=== PATIENT | male | born 1950 | race Caucasian/White ===

== ENCOUNTER 2017-05-26 11:24 | Outpatient (CLI) | payer MEDICARE ==
[~2017-05-26] VITALS: Ht 188 cm; Wt 136.4 kg
--- NOTE | ~2017-05-26 | HEMODYNAMI ---
PATIENT:SUSANA HURD MEDICAL RECORD: [id number] : 54 LOCATION:[facility] ADMISSION DATE: 05/26/17 Generatedon:05/26/201715:51 Patient name: SUSANA HURD Patient #: [id number] SSN: DO B: 1950 Date of study: 05/26/2017 Page: Of Hemodynamic Procedure Report Patient Data Patient Demographics Procedure consent was obtained First Name: SUSANA Gender: Male Last Name: VANNESSA : 1950 [facility] Initial: R Age: 67 year(s) Patient #: [id number] Race: Unknown Additional ID: [id number] Contact details Address: [address] [place] [address] State: [place] City: [facility] Zip code: [address] Past Medical History Allergies Allergen Reaction Date Comments Reported Sulfa drugs 05/26/2017 Admission Admission Data Admission Date: 05/26/2017 Admission Time: 11:24 Procedure Procedure Types Cath Procedure Diagnostic Procedure LHC LHC w/Coronaries Miscellaneous Procedures Moderate Sedation up to 30 minutes Procedure Description Procedure Date Procedure Date: 05/26/2017 Procedure Start Time: 15:29 Procedure End Time: 15:50 Procedure Staff Name Function Campbell Urbano MD Performing Physician eKlly Todd RT Monitor Mateo Gonzalez RT Scrub Dragan Patel RN Nurse Procedure Data Cath Procedure Fluoroscopy Diagnostic fluoroscopy Total fluoroscopy Time: 7 time: 7 min min Diagnostic fluoroscopy Total fluoroscopy dose: dose: 1014 mGy 1014 mGy Contrast Material Contrast Material Type Amount (ml) Isovue 300 118 Entry Location Entry Primary Successful Side Size Upsize Upsize Entry Closure Mckeon ccessful Closure Location (Fr) 1 (Fr) 2 (Fr) Remarks Device Remarks Radial Right 6 Fr Mechanical artery Short Compression Estimated blood loss: 5 ml Diagnostic catheters Device Type Used For End Catheter Placement DIAGNOSTIC Ahmet 110cm Left Coronary 5Fr catheter ([id number]) Angiography DIAGNOSTIC AR MOD 5Fr Right Coronary Catheter ([id number]) Angiography DIAGNOSTIC AR 2 MOD 5 Fr Right Coronary catheter ([id number]) Angiography DIAGNOSTIC Pigtail 5Fr Aortic Root catheter ([id number]) Angiography DIAGNOSTIC Pigtail 5Fr LV Angiography catheter ([id number]) Procedure Complications No complications Procedure Medications Medication Administration Route Dosage 0.9% NaCl I.V. 100 ml Oxygen NC 2 l/min Lidocaine 2% added to field 20 Heparin Flush Bag added to field 2 bags (1000units/500ml NS) Radial Cocktail added to field 1 syringe (Verapomil 2mg/Nitro 400mcg/Heparin 1500units) Versed I.V. 1 mg Fentanyl I.V. 50 mcg Versed I.V. 0.5 mg Fentanyl I.V. 25 mcg Radial Cocktail I.A. 1 syringe (Verapomil 2mg/Nitro 400mcg/Heparin 1500units) Versed I.V. 0.5 mg Fentanyl I.V. 25 mcg Hemodynamics Rest Heart Rate: 57 (bpm) Pressure Samples Time Site Value (mmHg) Purpose Heart Use Rate(bpm) 15:33 LV 130/-8,11 EDP 65 15:41 AO 125/74(97) Snapshot 59 15:44 LV 143/1,22 EDP 57 15:45 AO 143/77(103) Pullback 61 15:45 LV 147/4,29 Pullback 61 Gradients Valve Time Site 1 Site 2 Mean SEP/DFP Peak To Heart Use (mmHg) (sec/min) Peak Rate (mmHg) (bpm) Aortic 15:45 LV AO 11 18 4 61 147/4,29 143/77(103) Calculations Valve P-P Mean Valve Index Valve Source Name Gradient Area Flow (cm2) Aortic 4 11 4 11 Snapshots Pre Cath Intra NCS Post Cath Vital Signs Time Heart Resp SPO2 etCO2 NIBP (mmHg) Rhythm Pain Sedation Rate (ipm) (%) (mmHg) Status Level (bpm) 15:12:06 52 14 99 34.7 149/88(124) NSR 0 (11) 10(A) , No pain 15:16:59 53 13 86 0 137/84(105) NSR 0 (11) 10(A) , No pain 15:21:52 58 13 94 9 142/82(109) NSR 0 (11) 10(A) , No pain 15:26:47 56 15 95 20.4 137/85(110) NSR 0 (11) 10(A) , No pain 15:31:42 58 16 98 34.7 137/73(100) NSR 0 (11) 10(A) , No pain 15:36:39 61 13 94 25.7 133/68(98) NSR 0 (11) 10(A) , No pain 15:41:31 63 14 97 10.6 136/82(107) NSR 0 (11) 10(A) , No pain 15:46:27 58 16 98 22.7 141/83(111) NSR 0 (11) 10(A) , No pain Medications Time Medication Route Dose Verified Delivered Reason Notes Effectiveness by by 15:13:06 0.9% NaCl I.V. 100 ml Dragan Dragan Per Jorge Patel physician RN RN 15:13:27 Oxygen NC 2 l/min Dragan Dragan Per Jorge Patel physician RN RN 15:13:38 Lidocaine 2% added 20ml Dragan Dragan for local to vial Lorigan Jorge anesthetic field RN RN 15:13:55 Heparin Flush added 2 bags Dragan Dragan used for Bag to Jorge Patel procedure (1000units/500ml field RN RN NS) 15:14:18 Radial Cocktail added 1 Dragan Dragan for (Verapomil to syringe Jorge Patel vasodilation 2mg/Nitro field JIN RN 400mcg/Heparin 1500units) 15:20:00 Versed I.V. 1 mg Dragan Dragan for sedation Jorge Patel RN RN 15:20:14 Fentanyl I.V. 50 mcg Dragan Dragan for sedation Jorge Patel RN RN 15:30:01 Versed I.V. 0.5 mg Dragan Dragan for sedation Jorge Patel RN RN 15:30:11 Fentanyl I.V. 25 mcg Dragan Dragan for sedation Jorge Patel RN RN 15:31:39 Radial Cocktail I.A. 1 Dragan Campbell for (Verapomil syringe Jorge Urbano MD vasodilation 2mg/Nitro RN 400mcg/Heparin 1500units) 15:47:17 Versed I.V. 0.5 mg Dragan Campbell for sedation Jorge Urbano MD, RN 15:47:29 Fentanyl I.V. 25 mcg Dragan Campbell for sedation Jroge Urbano MD shale miner Log Time Note 14:50:03 Dragan Lorigan RN sent for patient. Start room use. 15:00:04 Time tracking: Regular hours 15:00:08 Plan of Care:Hemodynamics will remain stable., Cardiac rhythm will remain stable., Comfort level will be maintained., Respiratory function will remain adequate., Patient/ family verbilizes understanding of procedure., Procedure tolerated without complication., Recovers from procedure without complications.. 15:04:08 Patient received from Pre/Post Procedure Room to CCL 1 Alert and oriented. Tansferred to table in Supine position. 15:04:09 Warm blankets applied, and eloise hugger turned on for patient comfort. 15:04:10 Correct patient and procedure confirmed by team. 15:04:11 Signed procedure consent form obtained from patient. 15:04:11 ECG and BP/O2 sat monitors applied to patient. 15:10:59 Vital chart was started 15:13:06 0.9% NaCl 100 ml I.V. was administered by Dragan Patel RN; Per physician; 15:13:27 Oxygen 2 l/min NC was administered by Dragan Patel RN; Per physician; 15:13:38 Lidocaine 2% 20ml vial added to field was administered by Dragan Patel RN; for local anesthetic; 15:13:50 Rhythm: sinus bradycardia 15:13:51 Full Disclosure recording started 15:13:55 Heparin Flush Bag (1000units/500ml NS) 2 bags added to field was administered by Dragan Patel RN; used for procedure; 15:14:05 H&P Date Dictated: 05/22/2017 Within 30 days and on chart.. 15:14:06 Pre-procedure instructions explained to patient. 15:14:07 Pre-op teaching completed and patient verbalized understanding. 15:14:09 Family in patients room. 15:14:10 Patient NPO since Midnight. 15:14:18 Radial Cocktail (Verapomil 2mg/Nitro 400mcg/Heparin 1500units) 1 syringe added to field was administered by Dragan Patel RN; for vasodilation; 15:14:18 Patient allergic to Sulfa drugs 15:14:20 Is the patient allergic to Iodine/contrast media? No. 15:14:21 Is patient on blood thinner?No 15:14:23 Patient diabetic? No. 15:14:26 Previous problem with sedation/anesthesia? No ? 15:14:27 Snore? Yes 15:14:28 Sleep apnea? No 15:14:29 Deviated septum? No 15:14:30 Opens mouth fully? Yes 15:14:30 Sticks out tongue? Yes 15:14:32 Airway obstruction? No ? 15:14:34 Dentures? No ? 15:14:36 Pre procedure: right dorsailis pedis pulse 2+ Normal; easily identifiable; not easily obliterated 15:14:38 Modified Coy's test Ulnar < 7 seconds 15:14:40 Patient pain scale 0/10 ?. 15:14:45 IV patent on arrival in left hand with 0.9% NaCl at [facility]. 15:14:49 Lab results completed and on chart. 15:14:54 Right Radial & Right Groin area was prepped with chlora-prep and draped in sterile fashion 15:14:55 Alarms reviewed by R. N. 15:14:56 Sharps counted by scrub and verified by R.N. 15:15:00 Use device set Radial Dx 15:15:01 ACIST Syringe (40367) opened to sterile field. 15:15:01 Medline Cath Pack ([id number]) opened to sterile field. 15:15:02 Bag Decanter (2002S) opened to sterile field. 15:15:02 SHEATH 6FR Slender ([id number]) opened to sterile field. 15:15:03 DIAGNOSTIC WIRE .035 260cm J wire (078743) opened to sterile field. 15:15:04 ACIST Hand Control (94504) opened to sterile field. 15:15:05 ACIST Manifold (68770) opened to sterile field. 15:15:05 Tegaderm 4 x 4 (1626W) opened to sterile field. 15:15:06 MBrace Wrist Support ([id number]) opened to sterile field. 15:15:07 NEEDLE Cook 21G 4cm Radial (C30189) opened to sterile field. 15:19:15 Final Timeout: patient, procedure, and site verified with staff and physician. All members of the team are in agreement. 15:19:21 Right Radial site verified by team. 15:19:24 Physical assessment completed. ASA score P 2 - A patient with mild systemic disease as per Campbell Urbano MD. 15:19:27 Sedation plan: IV Moderate Sedation Medication:Versed, Fentanyl 15:20:00 Versed 1 mg I.V. was administered by Dragan Patel RN; for sedation; 15:20:14 Fentanyl 50 mcg I.V. was administered by Dragan Patel RN; for sedation; 15::49 Baseline sample Acquired. 15:25:06 Zero performed for pressure channel P1 15:29:22 Procedure started. 15:29:44 Local anesthetic to right radial artery with Lidocaine 2% by Campbell Urbano MD.INITIAL ACCESS ONLY 15:30:01 Versed 0.5 mg I.V. was administered by Dragan Patel RN; for sedation; 15:30:11 Fentanyl 25 mcg I.V. was administered by Drgaan Patel RN; for sedation; 15:31:05 A 6 Fr Short sheath was inserted into the Right Radial artery 15:31:39 Radial Cocktail (Verapomil 2mg/Nitro 400mcg/Heparin 1500units) 1 syringe I.A. was administered by Campbell Urbano MD; for vasodilation; 15:31:42 A DIAGNOSTIC Ahmet 110cm 5Fr catheter (275289) was advanced over the wire and used for Left Coronary Angiography. 15:36:18 Catheter removed. 15:36:29 A DIAGNOSTIC AR MOD 5Fr Catheter (273938Y) was advanced over the wire and used for Right Coronary Angiography. removed, unable to cannulate. 15:39:38 A DIAGNOSTIC AR 2 MOD 5 Fr catheter (552787R) was advanced over the wire and used for Right Coronary Angiography. removed, unable to cannulate. 15:41:12 A DIAGNOSTIC Pigtail 5Fr catheter (912677F) was advanced over the wire and used for Aortic Root Angiography. 15:45:03 A DIAGNOSTIC Pigtail 5Fr catheter (950997D) was advanced over the wire and used for LV Angiography. 15:45:07 LV gram done using LEIGH 15:45:11 Injector settings: Ml/sec: 10, Volume: 20, 15:45:12 LV hemodynamics recorded. 15:45:21 EF : 60 % 15:45:56 Catheter removed. 15:46:25 Sheath removed intact; hemostasis achieved with Mechanical Compression to the Right Radial artery. 15:46:29 Procedure ended.(Physican Out) 15:46:53 Fluoroscopy time 07.00 minutes. 15:47:08 Flurop Dose total: 1014 15:47:08 Fluoroscopy dose: 1014 mGy 15:47:13 Contrast amount:Isovue 300 118ml. 15:47:17 Versed 0.5 mg I.V. was administered by Campbell Urbano MD; for sedation; 15:47:29 Fentanyl 25 mcg I.V. was administered by Campbell Urbano MD; for sedation; 15:47:31 Sharps counted by scrub and verified by R.N. 15:47:34 TR band inflated with 12cc of air. 15:47:35 Insertion/operative site no bleeding no hematoma. 15:47:47 Post right radial artery:stable, soft, clean and dry 15:47:55 Post Procedure Pulses reassessed and unchanged 15:47:59 Post-procedure physical assessment completed. ASA score P 2 - A patient with mild systemic disease as per Campbell Urbano MD. 15:48:03 Post procedure rhythm: unchanged. 15:48:05 Estimated blood loss: 5 ml 15:48:07 Post procedure instruction explained to patient.Patient verbalizes understanding. 15:48:07 Patient needs reinforcement of post procedure teaching. 15:48:12 Procedure type changed to Cath procedure, Diagnostic procedure, LHC, LHC w/Coronaries, Miscellaneous Procedures, Moderate Sedation up to 30 minutes 15:48:18 Procedure Complication : No complications 15:48:19 TR BAND Large ([id number]) opened to sterile field. 15:48:24 See physician's report for complete and final results. 15:48:52 Procedure and supply charges have been captured, reviewed, submitted and are correct. 15:50:22 Vital chart was stopped 15:50:24 Report given to Pre/Post Procedure Room. 15:50:27 Patient transfered to Pre/Post Procedure Room with Stretcher. 15:50:39 Procedure ended. 15:50:39 Full Disclosure recording stopped 15:50:42 End room use (Document Last) Device Usage Item Name Manufacture Quantity Catalog Hospital Part Current Minima l Lot# / Number Charge Number Stock Stock Serial# Code ACIST Acist 1 51264 486074 988260 849841 20 Syringe Reapplix (56609) Systems Inc Medline Cath Cardinal 1 [id number] 977223 60253 315322 5 Pack Health ([id number]) Bag Decanter Microtek 1 770155 05491 267914 5 (2002S) Medical Inc. SHEATH 6FR Terumo 1 [id number] 993469 440566 037144 40 Slender ([id number]) DIAGNOSTIC [place] 1 519700 541949 942418 496493 30 WIRE .035 260cm J wire (699621) ACIST Hand Acist 1 09329 173781 505680 652088 5 Control Medical (51161) Systems Inc ACIST Acist 1 59189 565025 681275 719582 5 Manifold Medical (54086) Systems Inc Tegaderm 4 x 3M 1 1626W 355691 176808 367453 5 4 (1626W) MBrace Wrist Advanced 1 [id number] 963311 36869 970527 5 Support Vascular ([id number]) Dynamics NEEDLE [employer] Medical 1 R36667 984148 757806 586102 5 21G 4cm Radial (T28558) DIAGNOSTIC Terumo 1 405023 425139 247069 768510 5 Ahmet 110cm 5Fr catheter (359054) DIAGNOSTIC Cardinal 1 [id number] 908458 058572 916624 15 AR MOD 5Fr Health Catheter (770960H) DIAGNOSTIC Cardinal 1 [id number] 866228 912583 053847 20 AR 2 MOD 5 Health Fr catheter (926429V) DIAGNOSTIC Cardinal 1 [id number] 834973 256411 962123 5 Pigtail 5Fr Health catheter (719051M) TR BAND Terumo 1 [id number] 666411 310191 969719 40 Large ([id number]) Signature Audit Ridott Stage Time Signature Unsigned Intra-Procedure 05/26/2017 Kelly 3:51:24 PM Counts RT(R) Signatures Monitor : Kelly Signature : Counts RT Date : Time : [facility] [address] [place] [address]
[2017-05-26] MEDS ORDERED: CARDURA4 MG PO (11:56)
[2017-05-26] MEDS ORDERED: NORVASC10 MG PO (11:57)
[2017-05-26] MEDS ORDERED: HYDROCHLOROTHIA25 MG PO (11:57)
[2017-05-26 11:59] VITALS: BP 157/78; Ht 188 cm; Wt 136.4 kg
[2017-05-26 12:15] LABS: BASOPHILS 0.4 % (0-2); EOSINOPHILS 3.8 % (0-7); HEMATOCRIT 35.7 % (42.0-54.0); HEMOGLOBIN 10.7 g/dL (13.5-17.5); IMMATURE GRANULOCYTES 0.1 % (0-5); LYMPHOCYTES 15.7 % (15-50); MCH 21.1 pg (26.0-34.0); MCV 70.4 fL (80.0-100.0); MEAN PLATELET VOLUME 10.1 fL (7.4-10.4); MONOCYTES 11.9 % (2-11); NEUTROPHILS 68.1 % (40-80); PLATELET COUNT 229 10x3/uL (130-400); RBC 5.07 10x6/uL (4.20-6.10); RDW 19.7 % (11.5-14.5); WBC 7.7 10x3/uL (4.8-10.8)
[2017-05-26 13:06] LABS: ANION GAP 13.1 mmol/L (8-16); CALCIUM 9.3 mg/dL (8.5-10.1); CREATININE - SERUM 1.1 mg/dL (0.6-1.3); POTASSIUM - SERUM 4.1 mmol/L (3.5-5.1)
--- NOTE | 2017-05-26 16:15 | NUR ---
ROOM AIR, NO RESP DISTRESS. RIGHT WRIST TR BAND IN PLACE, NO BLEEDING OR HEMATOMA NOTED. NO C/O NAUSEA OR CHEST PAIN. VSS. AT BEDSIDE, CALL LIGHT WITHIN REACH.
--- NOTE | 2017-05-26 17:02 | NUR ---
3CC OF AIR REMOVED FROM TR BAND, NO BLEEDING NOTED.
--- NOTE | 2017-05-26 17:15 | NUR ---
3CC OF AIR REMOVED FROM TR BAND, NO BLEEDING NOTED.
--- NOTE | 2017-05-26 17:30 | NUR ---
4CC OF AIR REMOVED FROM TR BAND, NO BLEEDING NOTED.
--- NOTE | 2017-05-26 17:45 | NUR ---
LEFT HAND PIV D/C'D WITH CATHETER INTACT, BAND AID TO SITE. UP TO BEDSIDE TO GET DRESSED.
--- NOTE | 2017-05-26 17:52 | NUR ---
DISCHARGE INSTRUCTIONS GIVEN, VERBALIZED UNDERSTANDING. REMAINING AIR REMOVED FROM TR BAND, DRESSING PLACED TO SITE.
--- NOTE | 2017-05-26 18:00 | NUR ---
TAKEN OUT VIA WHEELCHAIR BY CATH RAIL SPLITTER. LEFT FACILITY WITH FAMILY AND ALL PERSONAL BELONGINGS.
== END 2017-05-26 18:00 | disposition home or self-care (01) ==
LOC: D.CATH 11:24
PROVIDERS: Internal Medicine Cardiovascular Disease
DX: I25.119 Atherosclerotic heart disease of native coronary artery with unspecified angina pectoris (principal); I35.1 Nonrheumatic aortic (valve) insufficiency; Z01.812 Encounter for preprocedural laboratory examination

== ENCOUNTER 2017-06-25 08:10 | Day surgery (SDC) | payer MEDICARE ==
[2017-06-24 15:32] LABS: HEMATOCRIT 39.8 % (42.0-54.0); HEMOGLOBIN 12.3 g/dL (13.5-17.5); MCH 22.4 pg (26.0-34.0); MCHC 30.9 g/dL (31.0-37.0); MCV 72.6 fL (80.0-100.0); MEAN PLATELET VOLUME 9.7 fL (7.4-10.4); RBC 5.48 10x6/uL (4.20-6.10); RDW 20.6 % (11.5-14.5); WBC 7.1 10x3/uL (4.8-10.8)
[2017-06-24 15:54] LABS: CALCIUM 9.4 mg/dL (8.5-10.1); CARBON DIOXIDE 29.8 mmol/L (21.0-32.0); CREATININE - SERUM 1.2 mg/dL (0.6-1.3); POTASSIUM - SERUM 3.8 mmol/L (3.5-5.1)
[~2017-06-25] VITALS: Ht 188 cm; Wt 136.1 kg
--- NOTE | ~2017-06-25 | OP ---
PATIENT NAME: SUSANA HURD MEDICAL RECORD: [id number] :54 LOCATION:D.[facility] ADMISSION DATE: SURGEON: URI KIM MD DATE OF OPERATION: 06/25/2017 SURGEON: Uri Kim MD ANESTHESIA: MAC by Juanita Del Valle CRNA PREOPERATIVE DIAGNOSIS: Elevated PSA 6.39. POSTOPERATIVE DIAGNOSIS: Elevated PSA 6.39. PROCEDURE: Transrectal ultrasound and prostate biopsy. FINDINGS: 85 gram prostate, very fibrous, small hypoechoic areas within the prostate. SPECIMENS: Prostate biopsy. ESTIMATED BLOOD LOSS: Minimal. CLINICAL HISTORY: This is a 67-year-old male who was found to have an elevated PSA of 6.39. He was diagnosed with bacterial prostatitis in 2001 and this was treated in [place], [place] at [facility]. He had a prostate biopsy in 2009 for elevated PSA and at that time, it showed inflammation and scar tissue. He has not seen a doctor in the interim as he did not have any health insurance. He is now on Medicare and he has a new family physician. Dr. Snowden obtained a serum PSA on him and it is elevated. On rectal examination, he has an enlarged prostate, which is firm around the right side, but no nodules were palpated. He comes today to have the prostate biopsied. He was allergic to SULFA. He has started on Levaquin prophylaxis. Today, we gave him Levaquin IV. He has used the fleet enema to clean his rectum out. DESCRIPTION OF PROCEDURE: The patient was given IV sedation. He was then placed in the dorsal lithotomy position and prepped and draped. The transrectal ultrasound probe was placed into the rectum and prostate size measurements were obtained. We have a calculated prostate size of 85 grams. Sextant biopsies were obtained with at least 3 specimens from each sextant. Once all specimens were obtained, then the procedure was terminated. The patient will be discharged home today. I will see him in followup next week to review the pathology. TRANSINT:[id number] Voice Confirmation ID: [id number] DOCUMENT ID: [id number] URI KIM MD at 2258 CC: [id number] DICTATION DATE: 06/25/17 1107 CENTRAL OFFICE TROUBLE SHOOTER: 06/25/17 1301 [facility] 06/25/17 [place] [id number] [place], [place] [id number]
[~2017-06-25 08:10] MED LIST: CARDURA4 MG PO; HYDROCHLOROTHIA25 MG PO; NORVASC10 MG PO
[2017-06-25] MEDS ORDERED: LEVAQUIN500 MG PO (08:37)
[2017-06-25 08:42] VITALS: BP 146/79; Ht 188 cm; Wt 136.1 kg
== END 2017-06-25 12:30 | disposition home or self-care (01) ==
LOC: D.OPS 08:10 → D.PAN 10:30 → D.OPS 12:30
PROVIDERS: Anesthesiology
DX: R97.20 Elevated prostate specific antigen [PSA] (principal); I10 Essential (primary) hypertension; I25.10 Atherosclerotic heart disease of native coronary artery without angina pectoris; Z87.891 Personal history of nicotine dependence

== ENCOUNTER → 2017-07-15 08:00 | Outpatient (CLI) | payer MEDICARE ==
[2017-06-25 08:42] VITALS: BMI 38.6
[~2017-07-15 08:00] MED LIST changes: +LEVAQUIN500 MG PO
== END | disposition home or self-care (01) ==
LOC: D.NM 08:00
DX: C61 Malignant neoplasm of prostate (principal)

== ENCOUNTER → 2018-11-29 10:47 | Outpatient (CLI) | payer MEDICARE ==
[2017-06-25 08:42] VITALS: BMI 38.6
== END | disposition home or self-care (01) ==
LOC: D.HCCARDIO 09-21 10:00
PROVIDERS: ATTEND Internal Medicine Cardiovascular Disease
DX: I50.9 Heart failure, unspecified (principal)

== ENCOUNTER → 2020-02-21 08:24 | Outpatient (CLI) | payer MEDICARE ==
[2019-08-03 11:37] VITALS: BMI 35.4
[~2020-02-21 08:24] MED LIST changes: +BETAPACE 80 MG80 MG PO; +REVATIO20 MG PO; +XARELTO20 MG PO
== END | disposition home or self-care (01) ==
LOC: D.HCCECHO 08:24
PROVIDERS: ATTEND Internal Medicine Cardiovascular Disease
DX: I48.91 Unspecified atrial fibrillation (principal)

== ENCOUNTER 2020-12-19 11:26 | Day surgery (SDC) | payer MEDICARE ==
[~2020-12-19] VITALS: Ht 188 cm; Wt 139.7 kg
--- NOTE | ~2020-12-19 | HEMODYNAMI ---
PATIENT:SUSANA HURD MEDICAL RECORD: [id number] : 54 LOCATION:D.CAT ADMISSION DATE: 12/19/20 Generatedon:113:56 Patient name: SUSANA HURD Patient #: [id number] SSN: DO B: 1950 Date of study: 12/19/2020 Page: Of Hemodynamic Procedure Report Patient Data Patient Demographics Procedure consent was obtained First Name: SUSANA Gender: Male Last Name: VANNESSA : 1950 Middle Initial: R Age: 70 year(s) Patient #: [id number] Race: Additional ID: [id number] Contact details Address: [address] [place] [address] State: [place] City: [facility] Zip code: [address] Past Medical History Allergies Allergen Reaction Date Comments Reported Sulfa drugs 05/26/2017 Sulfa drugs 08/03/2019 Sulfa drugs 12/19/2020 Admission Admission Data Admission Date: 12/19/2020 Admission Time: 11:26 Arrival Date: 12/19/2020 Arrival Time: 0:00 Admit Source: Other Procedure Procedure Types Cath Procedure Diagnostic Procedure Cardioversion External Procedure Description Procedure Date Procedure Date: 12/19/2020 Procedure Start Time: 13:31 Procedure End Time: 13:42 Procedure Staff Name Function Cambpell Urbano MD Performing Physician Shyann Ramírez RT Monitor Suhail Cuevas RT Gas Processing Plant Operator Ria Sanders RN Nurse Landon Mcmanus CRNA Additional personnel Procedure Data Cath Procedure Estimated blood loss: 0 ml Procedure Complications No complications Procedure Medications Medication Administration Route Dosage Oxygen etCO2 Nasal cannula 2 l/min Refer to Anesthesia Notes for Sedation Medications Hemodynamics Rest Heart Rate: 70 (bpm) Snapshots Pre Cath Intra NCS Post Cath Vital Signs Time Heart Resp SPO2 etCO2 NIBP (mmHg) Rhythm Pain Sedation Rate (ipm) (%) (mmHg) Status Level (bpm) 13:30:54 74 22 94 0 160/107(139) NSR 0 (11) 10(A) , No pain 13:35:26 61 17 98 30.8 166/107(116) NSR 0 (11) 9(A) , No pain 13:40:32 57 19 94 34.5 143/90(114) NSR 0 (11) 9(A) , No pain 13:45:06 59 29 93 12.7 151/74(104) NSR 0 (11) 10(A) , No pain 13:48:14 55 13 96 25.5 152/83(99) NSR 0 (11) 10(A) , No pain 13:51:39 19.5 No Cuff NSR 0 (11) 10(A) , No pain 13:55:39 0 No Cuff NSR 0 (11) 10(A) , No pain Medications Time Medication Route Dose Verified Delivered Reason Notes Effective ness by by 13:31:26 Oxygen etCO2 2 Campbell Buffie used for Nasal l/min Sundeep Sanders bolt maker cannula 13:31:30 Refer to Campbell Buffie Anesthesia Sundeep Sanders RN Notes for Sedation Medications Procedure Log Time Note 12:22:24 Procedure Status Cardioversion. 13:19:38 Campbell Urbano MD sent for patient. Start room use. 13:19:40 Time tracking: Regular hours (M-F 7:00 - 5:00) 13:19:45 Plan of Care:Hemodynamics will remain stable., Cardiac rhythm will remain stable., Comfort level will be maintained., Respiratory function will remain adequate., Patient/ family verbilizes understanding of procedure., Procedure tolerated without complication., Recovers from procedure without complications.. 13:19:55 Patient arrived from Pre/Post Procedure Room to [facility]. Patient remains on bed/stretcher for procedure. 13:19:57 Warm blankets applied, and eloise hugger turned on for patient comfort. 13:19:58 Signed procedure consent form obtained from patient. 13:19:59 Correct patient and procedure confirmed by team. 13:20:00 ECG and BP/O2 sat monitors applied to patient. 13:28:24 Vital chart was started 13:28:27 Baseline sample Acquired. 13:28:40 Rhythm: atrial fibrillation 13:28:41 Full Disclosure recording started 13:28:55 H&P Date Dictated: 12/05/2020 H&P Addendum completed by physician on day of procedure. (MUST COMPLETE FOR ALL OUTPATIENTS). 13:28:56 Pre-procedure instructions explained to patient. 13:28:56 Pre-op teaching completed and patient verbalized understanding. 13:28:58 Family in patients room. 13::59 Patient NPO since Midnight. 13:29:10 Patient allergic to Sulfa drugs 13:29:13 Is the patient allergic to Iodine/contrast media? No. 13:29:15 Is patient on blood thinner?Yes 13:29:21 ACC The patient was administered the following blood thiners within the last 24 hours: Xarelto 13:29:24 Patient diabetic? No. 13:29:36 ----Pre-sedation anethsthesia assessment.---- 13:29:40 Previous problem with sedation/anesthesia? No ? 13:29:42 Snore? Yes 13:29:43 Sleep apnea? Yes 13:29:50 Deviated septum? No 13:29:51 Opens mouth fully? Yes 13:29:54 Sticks out tongue? Yes 13:29:56 Airway obstruction? No ? 13:29:59 Dentures? No ? 13:30:07 IV patent on arrival in left antecubital with 0.9% NaCl at [facility]. 13:30:10 Lab results completed and on chart. 13:30:13 Alarms reviewed by Kathleen Albright. 13:30:14 Sharps counted by scrub and verified by R.N. 13:30:15 Physician arrived 13:30:16 --------ALL STOP TIME OUT------ 13:30:16 Final Timeout: patient, procedure, and site verified with staff and physician. All members of the team are in agreement. 13:30:26 Fire Safety Assessment: A--An alcohol-based skin anteseptic being used preoperatively., C--Open oxygen or nitrous oxide is being used., D--An ESU, laser, or fiber-optic light is being used. 13:30:30 Physical assessment completed. ASA score P 2 - A patient with mild systemic disease as per Campbell Urbano MD. 13:30:36 Sedation plan: TIVA Medication:Propofol 13:31:26 Oxygen 2 l/min etCO2 Nasal cannula was administered by Ria Sanders RN; used for procedure; Verbal order read back and verified. 13:31:30 Refer to Anesthesia Notes for Sedation Medications was administered by Ria Sanders RN; ; Verbal order read back and verified. 13:31:45 Quick Combo opened to sterile field. 13:31:47 Landon Mcmanus CRNA present and monitoring patient for TIVA. 13:31:50 Procedure started. 13:31:53 ------Cardioversion------ 13:31:53 Quick combo pads placed on patients chest and back. 13:39:29 Defibrillator synced and charged to 200 Joules. 13:39:34 Shock delivered. 13:39:49 Patient cardioverted to sinus rhythm . 13:40:06 Procedure ended.(Physican Out) 13:40:23 Post procedure rhythm: sinus rhythm 13:40:25 Estimated blood loss: 0 ml 13:40:27 Post procedure instruction explained to patient.Patient verbalizes understanding. 13:40:28 Patient needs reinforcement of post procedure teaching. 13:40:33 Post-procedure physical assessment completed. ASA score P 2 - A patient with mild systemic disease as per Campbell Urbano MD. 13:41:39 Procedure and supply charges have been captured, reviewed, submitted and are correct. 13:41:44 Procedure Complication : No complications 13:41:47 Operative report dictated upon procedure completion. 13:41:48 See physician's report for complete and final results. 13:41:50 Report given to Pre/Post Procedure Room. 13:41:52 Patient transfered to Pre/Post Procedure Room with Stretcher. 13:42:03 Procedure ended. 13:42:03 Full Disclosure recording stopped 13:42:09 End room use (Document Last) 13:42:22 End room use (Document Last) 13:49:29 Arrival Date: 12/19/2020 12:00:00 AM 13:49:30 Admit Source: Other 13:56:14 Vital chart was stopped Device Usage Item Manufacture Quantity Catalog Hospital Part Current Minimal Lot# / Name Number Charge Number Stock Stock Laurie al# Code [employer] 1 [id number] Combo Signature Audit [place] Stage Time Signature Unsigned Intra-Procedure 12/19/2020 Suhail Cuevas RT(R) 1:55:11 PM Intra-Procedure 12/19/2020 Ria Sanders RN 1:55:54 PM Intra-Procedure 12/19/2020 Campbell Urbano MD 1:56:13 PM [facility] [address] [place] [address]
[~2020-12-19 11:26] MED LIST changes: +FLOMAX0.4 MG PO
[2020-12-19] MEDS ORDERED: ASPIRIN325 MG PO (12:04)
[2020-12-19 12:31] VITALS: BP 155/102; Ht 188 cm; Wt 139.7 kg
[2020-12-19 12:50] LABS: BASOPHILS 0.9 % (0-2); EOSINOPHILS 7.4 % (0-7); HEMATOCRIT 44.6 % (42.0-54.0); HEMOGLOBIN 15.1 g/dL (13.5-17.5); LYMPHOCYTES 25.6 % (15-50); MCH 30.7 pg (26.0-34.0); MCHC 33.7 g/dL (31.0-37.0); MEAN PLATELET VOLUME 8.4 fL (7.4-10.4); MONOCYTES 11.4 % (2-11); NEUTROPHILS 54.7 % (40-80); PLATELET COUNT 198 10x3/uL (130-400); RBC 4.91 10x6/uL (4.20-6.10); RDW 13.5 % (11.5-14.5); WBC 6.5 10x3/uL (4.8-10.8)
[2020-12-19 12:58] LABS: CALC OSMOLALITY 270 mosm/kg (275-300); CALCIUM 9.2 mg/dL (8.5-10.1); CHLORIDE - SERUM 98 mmol/L (98-107); GLUCOSE 102 mg/dL (74-106); POTASSIUM - SERUM 3.6 mmol/L (3.5-5.1); SODIUM 135 mmol/L (136-145); UREA NITROGEN 16 mg/dL (7-18); eGFR NON AFRICAN AMERICAN 79 mL/min (90-120)
[2020-12-19 13:13] LABS: INR 1.63 (0.85-1.17); PROTIME 17.9 SECONDS (11.6-15.0)
--- NOTE | 2020-12-19 13:56 | NUR ---
PT ARRIVES TO ROOM 2 VIA STRETCHER S/P CARDIOVERSION. SEE PATIENT FINANCIAL ADVOCATE. PT PLACED ON MONITORS AND ALARMS ON, PT DENIES PAIN OR NEEDS, IV INFUSING PER ORDERS, SPOUSE AT BEDSIDE, CALL LIGHT WITHIN REACH
--- NOTE | 2020-12-19 14:11 | NUR ---
RESTING QUIETLY VISITING WITH SPOUSE, VSS, NSR WITH NO ECTOPY, DENIES PAIN OR NEEDS, IV INFUSING PER ORDERS, CALL LIGHT WITHIN REACH
--- NOTE | 2020-12-19 14:30 | NUR ---
VSS, SB WITH NO ECTOPY, DENIES PAIN OR NEEDS, PO FLUIDS GIVEN DECLINES SANDWICH BOX, IV INFUSING PER ORDERS, CALL LIGHT WITHIN REACH
--- NOTE | 2020-12-19 14:40 | NUR ---
DR MIX TO BEDSIDE TO VISIT WITH PT AND SPOUSE
--- NOTE | 2020-12-19 15:00 | NUR ---
PT VSS, SB NO ECTOPY, DENIES PAIN OR NEEDS, DISCHARGE TEACHING STARTED AND COMPLETED PT AND SPOUSE VERBALIZED UNDERSTANDING, QUESTIONS AND CONCERNS ADDRESSED, 22G IV REMOVED CATHETER INTACT DRESSING APPLIED, PT DRESSES AND AMBULATES TO BATHROOM TO VOID WITHOUT DIFFICULTY.
--- NOTE | 2020-12-19 15:15 | NUR ---
PT DISCHARGED ORDERED, DENIES NEEDS OR PAIN, TAKEN TO FAMILY CAR VIA WHEELCHAIR
== END 2020-12-19 15:15 | disposition home or self-care (01) ==
LOC: D.CATH 11:26
PROVIDERS: ATTEND Internal Medicine Cardiovascular Disease
DX: I48.91 Unspecified atrial fibrillation (principal); I10 Essential (primary) hypertension; I08.8 Other rheumatic multiple valve diseases